=== PATIENT | male | born 1930 | race Caucasian/White ===

== ENCOUNTER 2021-02-27 19:07 | Emergency (ER) | payer OTHER ==
[~2021-02-27] VITALS: Ht 154.9 cm; Wt 78.5 kg
[~2021-02-27 19:07] MED LIST: no reportable meds
[2021-02-27 19:16] VITALS: BP 160/88
[2021-02-27] MEDS ORDERED: TDAP [DIPH/PERTUSSIS/TET] 0.5 ML VIAL IM ONE ×2 (19:30→19:54)
--- NOTE | 2021-02-27 20:49 | NUR ---
Patient discharged to home in stable condition. Written and verbal after care instructions given. Patient verbalizes understanding of instruction. pt dc via w/c with
== END 2021-02-27 20:52 | disposition home or self-care (01) ==
LOC: ER 19:19 → EDSEX 19:19 → ER 20:52
DX: S40.021A Contusion of right upper arm, initial encounter (principal); S00.83XA Contusion of other part of head, initial encounter; I48.91 Unspecified atrial fibrillation; W18.39XA Other fall on same level, initial encounter; Y93.9 Activity, unspecified; Y92.89 Other specified places as the place of occurrence of the external cause; Y99.8 Other external cause status
CPT/HCPCS: 70450-TC; 72125-TC; 73060-TC; 90715